=== PATIENT | female | born 1990 | race Caucasian/White ===

== ENCOUNTER 2019-11-24 16:27 | Emergency (ER) | payer MEDICAID ==
[~2019-11-24] VITALS: Ht 180.3 cm; Wt 63.5 kg
[2019-11-24 16:52] VITALS: BP 104/68
[2019-11-24 17:20] LABS: APPEARANCE,URINE CLEAR (CLEAR); BILIRUBIN,URINE NEGATIVE (NEGATIVE); BLOOD, URINE TRACE-I (NEGATIVE); COLOR,URINE YELLOW (YELLOW); LEUKOCYTE ESTERASE ,URINE NEGATIVE (NEGATIVE); NITRITE, URINE NEGATIVE (NEGATIVE); UGLUCOSE NEGATIVE (NEGATIVE)
--- NOTE | 2019-11-24 17:20 | NUR ---
PT TAKEN TO ER BED 12
[2019-11-24 17:30] LABS: RBC,URINE 0-5 /HPF (0-5); WBC,URINE NONE SEEN /HPF (0-5)
--- NOTE | 2019-11-24 17:34 | NUR ---
29/ C/O HACKING PERSISTANT COUGH WITH STREAKS OF BLOOD, ANTERIOR CHEST WALL PAIN WITH COUGH AND DEEP INSPIRATION, FATIGUE, BODYACHES, F/C ---X 5 DAYS TACHY 120S, TEMP 99.8, VS OTHERWISE WNL. 09/09 BODY ACHE HX--ANXIETY, DEPRESSION, FIBROMYALGIA, IBS, GERD, RX--NONE
[2019-11-24] MEDS ORDERED: ALBUTEROL SULFATE/IPRATROPIU 3 ML SOL IH ONE (18:35)
[2019-11-24] MEDS ORDERED: LEVOFLOXACIN 750 MG TAB PO ONE (18:35)
[2019-11-24] MEDS ORDERED: methylPREDNISolone SS 125 MG in WATER STERILE 2 ML IM ONE (18:35)
[2019-11-24] MEDS ORDERED: methylPREDNISolone SS 125 MG/2 ML VIAL ONE (18:51)
[2019-11-24] MEDS ORDERED: WATER STERILE 10 ML MC ONE (18:51)
--- NOTE | 2019-11-24 19:02 | NUR ---
RT AT BEDSIDE FOR RESPIRATORY INTERVENTION
--- NOTE | 2019-11-24 19:16 | NUR ---
REPORT TO GENNA ROSALES. TRANSFER OF CARE AT THIS TIME.
[2019-11-24 19:40] VITALS: BP 123/79
== END 2019-11-24 19:40 | disposition home or self-care (01) ==
LOC: MED 16:27
DX: J18.9 Pneumonia, unspecified organism (principal); R19.7 Diarrhea, unspecified
CPT/HCPCS: 71045; 81001; 81025; 87804; 94640; 96372; 99284; J2930; J7620; Q0092; Q0163

== ENCOUNTER 2020-02-16 11:34 | Emergency (ER) | payer MEDICAID ==
[~2020-02-16] VITALS: Ht 180.3 cm; Wt 74.4 kg
[2020-02-16 11:46] VITALS: BP 116/72
--- NOTE | 2020-02-16 11:52 | NUR ---
Patient ambulated to bed 3 with family. RN evaluating patient at bedside.
--- NOTE | 2020-02-16 12:21 | NUR ---
RECEIVED A 29/F FROM TRIAGE FOR C/O SORE THROAT, SUBJECTIVE FEVER, AND COUGH X 3 DAYS. LUNG SOUNDS CLEAR TO ASCULTATION BILATERALLY. NO APPARENT DISTRESS NOTED. IN BED FOR MSE.
--- NOTE | 2020-02-16 12:23 | NUR ---
smog technician at bedside.
[2020-02-16 13:03] VITALS: BP 116/72
--- NOTE | 2020-02-16 13:03 | NUR ---
Patient discharged with v/s stable. Written and verbal after care instructions given and explained. Patient alert, oriented and verbalized understanding of instructions. Ambulatory with steady gait. All questions addressed prior to discharge. ID band removed. Patient advised to follow up with PMD. Rx of ALBUTEROL, PREDNISONE, AEROCHAMBER given. Patient educated on indication of medication including possible reaction and side effects. Opportunity to ask questions provided and answered.
== END 2020-02-16 13:03 | disposition home or self-care (01) ==
LOC: MED 11:34
DX: B34.9 Viral infection, unspecified (principal); J98.01 Acute bronchospasm
CPT/HCPCS: 71045; 99283; Q0092

== ENCOUNTER 2021-10-09 09:07 | Emergency (ER) | payer MEDICAID ==
[~2021-10-09] VITALS: Ht 180.3 cm; Wt 92.2 kg
[2021-10-09 09:25] VITALS: BP 130/70
--- NOTE | 2021-10-09 09:45 | NUR ---
31 Y/O FEMALE BIB SELF C/O RASH TO BOTTOM OF BILATERAL FEET AND HANDS SINCE YESTERDAY. PT DENIES FEVER/CHILLS. DENIES APPLICATION OF ANY MEDICATION. PT REPORTS HAVING ATHLETES FOOT AND FLEAS ON HER A FEW WEEKS AGO BUT NEVER RECEIVED TREATMENT. PT REPORTS BEING "ITCHY FOR YEARS" WITH INVISIBLE RASH. IN ED, VSS. WITH SMALL, RAISED, RED LESIONS ON BILATERAL HANDS AND FEET. NO DISCHARGE NOTED. ERMD MADE AWARE OF PT STATUS. PMH:FIBROMYALGIA, GASTRITIS, IBS ALLERGIES:HYDROCODONE
--- NOTE | 2021-10-09 10:20 | NUR ---
DR FRANK AT BEDSIDE EVALUATING PT
[2021-10-09] MEDS ORDERED: CETI10SG1 PO (10:32)
[2021-10-09] MEDS ORDERED: FLUO0.0210 TP (10:33)
--- NOTE | 2021-10-09 10:40 | NUR ---
Patient discharged with v/s stable. Written and verbal after care instructions given and explained. Patient alert, oriented and verbalized understanding of instructions. Ambulatory with steady gait. All questions addressed prior to discharge. ID band removed. Patient advised to follow up with PMD. Rx of CETIRIZINE, FLUOCINOLONE given. Patient educated on indication of medication including possible reaction and side effects. Opportunity to ask questions provided and answered.
[2021-10-09 10:51] VITALS: BP 130/70
== END 2021-10-09 10:40 | disposition home or self-care (01) ==
LOC: MED 09:07
DX: R21 Rash and other nonspecific skin eruption (principal); Z88.5 Allergy status to narcotic agent; Z79.899 Other long term (current) drug therapy
CPT/HCPCS: 99283

== ENCOUNTER 2023-10-02 13:24 | Emergency (ER) | payer MEDICAID ==
[~2023-10-02] VITALS: Ht 182.9 cm; Wt 85.7 kg
[~2023-10-02 13:24] MED LIST: CETI10SG1 PO; FLUO0.0210 TP
[2023-10-02 13:50] VITALS: BP 140/95; PULSE 89; RESP 17; TEMP 97.1; O2SAT 98
[2023-10-02 16:56] LABS: APPEARANCE,URINE CLEAR (CLEAR); BILIRUBIN,URINE NEGATIVE (NEGATIVE); BLOOD, URINE NEGATIVE (NEGATIVE); COLOR,URINE YELLOW (YELLOW); LEUKOCYTE ESTERASE ,URINE NEGATIVE (NEGATIVE); NITRITE, URINE NEGATIVE (NEGATIVE); PROTEIN,URINE NEGATIVE (NEGATIVE); UGLUCOSE NEGATIVE (NEGATIVE); UROBILINOGEN,URINE 0.2 EU/dL (0.2 - 1)
[2023-10-02] MEDS ORDERED: DICYCLOMINE 10 MG CAP PO ONE (19:20)
[2023-10-02] MEDS ORDERED: ACETAMINOPHEN EXTRA STRENGTH 500 MG TAB PO ONE (19:20)
[2023-10-02] MEDS ORDERED: KETOROLAC 30 MG/ML VIAL IM ONE (19:20)
[2023-10-02 19:27] LABS: BASOPHILS % (AUTO) 0.5 % (0.0-2.0); EOSINOPHILS # (AUTO) 0.1 K/uL (0-0.4); EOSINOPHILS % (AUTO) 0.7 % (0.0-4.0); HEMATOCRIT 42.2 % (36-48); HEMOGLOBIN 14.2 g/dL (12.0-16.0); LYMPHOCYTES # (AUTO) 2.4 K/uL (2.5-16.5); LYMPHOCYTES % (AUTO) 27.1 % (20.5-51.1); MEAN CORPUSCULAR HEMOGLOBIN 31 pg (27-31); MEAN CORPUSCULAR HGB CONC 34 g/dL (33-37); MEAN CORPUSCULAR VOLUME 91.9 fL (80-94); MONOCYTES # (AUTO) 0.5 K/uL (0.8-1.0); MONOCYTES % (AUTO) 5.7 % (1.7-9.3); PLATELET COUNT (AUTO) 173 K/uL (140-450); RED BLOOD CELL COUNT(AUTO) 4.59 MIL/uL (4.20-5.40); RED CELL DISTRIBUTION WIDTH 13.1 % (11.6-13.7)
[2023-10-02 19:45] LABS: ALBUMIN 3.8 g/dL (3.4-5.0); ANION GAP 12.3 (8-16); CALCIUM 8.9 mg/dL (8.5-10.1); CARBON DIOXIDE 27.5 mmol/L (21-32); CREATININE 0.8 mg/dL (0.6-1.3); POTASSIUM 3.8 mmol/L (3.5-5.1); TOTAL BILIRUBIN 0.4 mg/dL (0.0-1.0); TOTAL PROTEIN, SERUM 7.5 g/dL (6.4-8.2)
[2023-10-02] MEDS ORDERED: DICYCLOMINE HCL LIQUID 10 MG/5 ML UDC ONE (20:35)
[2023-10-02] MEDS ORDERED: DICYCLOMINE 10 MG CAP ONE (20:36)
[2023-10-02] MEDS ORDERED: KETOROLAC 30 MG/ML VIAL ONE (20:37)
[2023-10-02 21:10] VITALS: BP 140/95; PULSE 89; RESP 17; TEMP 97.1; O2SAT 98
== END 2023-10-02 21:10 | disposition home or self-care (01) ==
LOC: MED 13:24
DX: K58.9 Irritable bowel syndrome, unspecified (principal); K29.70 Gastritis, unspecified, without bleeding; Z79.899 Other long term (current) drug therapy; Z88.5 Allergy status to narcotic agent
CPT/HCPCS: 36415; 74176; 80053; 81003; 81025; 85025; 96372; 99285; J1885